=== PATIENT | male | born 1995 | race Caucasian/White ===

== ENCOUNTER 2022-04-29 14:50 | Emergency (ER) | payer MEDICAID, SELFPAY ==
[2022-04-29 14:59] VITALS: BP 147/87; PULSE 86; RESP 16; TEMP 36.6; O2SAT 95
[2022-04-29 15:32] LABS: Abs Immature Grans 0.14 10^3/uL (0.0-0.06); Absolute Eosinophil Count 0.09 10^3/uL (0.0-0.7); Absolute Neutrophil Count 12.65 10^3/uL (1.2-6.7); Basophils % 0.4; Eosinophils % 0.6; HCT 41.9 % (40.0-50.0); HGB 14.8 g/dL (13.5-17.5); Immature Grans % 0.9; Lymphocytes % 9.6; MCH 31.5 pg (27.0-33.0); MCHC 35.3 % (32.0-36.0); MCV 89 fL (80-95); MPV 10.1 fL (8.0-11.0); Monocytes % 7.3; Neutrophils % 81.2; Platelet Count 307 10^3/uL (130-400); RDW 12.1 % (11.8-14.1); RDW-SD 39.7 fL; WBC 15.58 10^3/uL (4.4-10.8)
[2022-04-29 15:33] LABS: Absolute Basophil Count 0.06 10^3/uL (0.0-0.2); Absolute Monocyte Count 1.14 10^3/uL (0.1-0.8)
[2022-04-29 15:40] VITALS: PULSE 84; RESP 21
[2022-04-29 15:46] LABS: ALT 50 U/L (16-63); AST 26 U/L (15-37); Albumin 4.1 g/dL (3.4-5.0); Alkaline Phosphatase 84 U/L (46-116); Anion Gap 9.9 mmol/L (3-11); BUN 11 mg/dL (7-18); Bilirubin, Total 0.4 mg/dL (0.2-1.0); CO2 24.1 mmol/L (21.0-32.0); CREATININE 1.1 mg/dL (0.70-1.30); Calcium 8.7 mg/dL (8.5-10.1); Chloride 108 mmol/L (98-107); Glucose 96 mg/dL (74-106); Potassium 3.6 mmol/L (3.5-5.1); Sodium 142 mmol/L (136-145)
[2022-04-29] MEDS: levETIRAcetam 1,000 MG in Normal Saline 100 ML 400 MG IVPB (15:46)
[2022-04-29] MEDS: Normal Saline 1,000 ML 1000 ML IV (15:46)
[2022-04-29] MEDS: Ondansetron 4 MG/2 ML VIAL IVP (15:46)
[2022-04-29 15:50] VITALS: PULSE 70; RESP 18
[2022-04-29 16:00] VITALS: PULSE 77; RESP 19
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
[2022-04-29] MEDS: lamoTRIgine 100 MG TAB 300 MG PO (16:01)
[2022-04-29 16:10] VITALS: PULSE 72; RESP 19
[2022-04-29 16:20] VITALS: PULSE 72; RESP 21
[2022-04-29] MEDS: levETIRAcetam 250 MG TAB 3000 MG PO (16:23)
[2022-04-29] MEDS: lamoTRIgine 100 MG TAB 600 MG PO (16:23)
[2022-05-02 13:05] LABS: Lamotrigine <0.2 mcg/mL (2.5 - 15.0)
== END 2022-04-29 16:25 | disposition home or self-care (01) ==
PROVIDERS: Emergency Provider Student in an Organized Health Care Education/Training Program; PCP Nurse Practitioner Family
DX: G40.109 Localization-related (focal) (partial) symptomatic epilepsy and epileptic syndromes with simple partial seizures, not intractable, without status epilepticus (principal); Z91.14 Patient's other noncompliance with medication regimen
CPT/HCPCS: 80053; 80175; 96361; 96365; 99284; 85025; 99283; J1953; J2405

== ENCOUNTER 2022-05-23 07:15 | Outpatient (REF) | payer MEDICAID, SELFPAY ==
[2022-05-23 07:44] LABS: Calculated LDL 86 mg/dL (<100); Cholesterol 148 mg/dL (<200); HDL Cholesterol 49 mg/dL (40-60); Triglyceride 69 mg/dL (<150)
[2022-05-24 09:57] LABS: HIV-1/2 Ag & Ab Screen Negative (Negative)
[2022-05-24 10:11] LABS: Hepatitis C Ab w Rflx HCV PCR Negative (Negative)
[2022-05-24 14:10] LABS: Levetiracetam 14.2 mcg/mL
== END 2022-05-23 07:16 | disposition home or self-care (01) ==
LOC: LBN 07:15
PROVIDERS: PCP Nurse Practitioner Family; Visit Provider Nurse Practitioner Family
DX: G40.109 Localization-related (focal) (partial) symptomatic epilepsy and epileptic syndromes with simple partial seizures, not intractable, without status epilepticus (principal); Z51.81 Encounter for therapeutic drug level monitoring; Z11.4 Encounter for screening for human immunodeficiency virus [HIV]; Z11.59 Encounter for screening for other viral diseases; Z13.220 Encounter for screening for lipoid disorders
CPT/HCPCS: 80061; 86803; 87389; 80177

== ENCOUNTER 2024-12-20 14:15 | Emergency (ER) | payer OTHER, SELFPAY ==
[2024-12-20 14:18] VITALS: BP 158/92; PULSE 100; RESP 16; TEMP 36.7; O2SAT 96
[2024-12-20 14:22] VITALS: BP 158/92; PULSE 100; RESP 16; TEMP 36.7; O2SAT 96
[2024-12-20] MEDS: Ibuprofen 600 MG TAB PO (14:54)
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
[2024-12-20 15:08] VITALS: BP 142/97; PULSE 87; RESP 20; TEMP 37.4; O2SAT 98
== END 2024-12-20 15:24 | disposition home or self-care (01) ==
PROVIDERS: Emergency Provider Emergency Medicine; PCP Family Medicine
DX: J06.9 Acute upper respiratory infection, unspecified (principal); B97.89 Other viral agents as the cause of diseases classified elsewhere; G40.909 Epilepsy, unspecified, not intractable, without status epilepticus; Z79.899 Other long term (current) drug therapy
CPT/HCPCS: 87426; 99283